=== PATIENT | male | born 1995 | race Caucasian/White ===

== ENCOUNTER 2020-01-18 12:48 | Emergency (ER) | payer BC, OTHER ==
[2020-01-18 12:58] VITALS: BP 118/79; PULSE 49; RESP 18; TEMP 98.1
--- NOTE | 2020-01-18 13:47 | ED ---
Wound/Laceration HPI - General Chief Complaint: Wound/Laceration Stated Complaint: rt arm lac Time Seen by Provider: 01/18/20 13:04 Source: patient, RN notes reviewed, old records reviewed Mode of arrival: ambulatory Limitations: no limitations - History of Present Illness Initial Comments: 24 year old male presents with R arm laceration after tripping last night and patient attempted to sow laceration with needle and thread last night. Patient presents for wound evaluation. He reports TDAP is up to date. Patient denies any redness or pain from laceration. - Related Data Home Medications Medication Instructions Recorded Confirmed Albuterol Sulfate [Proair Hfa] 2 puff INHALATION Q4H PRN 03/03/14 03/04/14 Previous Rx's Medication Instructions Recorded Acamprosate Calcium [Campral] 666 mg PO PC-TID #90 tablet. 03/10/14 Budesonide-Formot 160-4.5 Mcg 2 puff INHALATION RT-BID 30 Days 03/10/14 [Symbicort 160-4.5 Mcg Inhaler] puff Cefuroxime [Ceftin] 500 mg PO BID #60 tab 03/10/14 DULoxetine HCL [Cymbalta] 1 tab PO DAILY #30 capsule. 03/10/14 Loratadine [Claritin] 10 mg PO DAILY #30 tab 03/10/14 cloNIDine HCL [Catapres] 0.1 mg PO BID #60 tab 03/10/14 lamoTRIgine [LaMICtal] 25 mg PO DAILY #30 tab 03/10/14 Allergies Allergy/AdvReac Type Severity Reaction Status Date / Time shrimp Allergy Unknown Uncoded 01/18/20 12:57 Childhood Review of Systems ROS Statement: Those systems with pertinent positive or pertinent negative responses have been documented in the HPI. ROS Other: All systems not noted in ROS Statement are negative. Past Medical History Past Medical History: Asthma History of Any Multi-Drug Resistant Organisms: None Reported Past Surgical History: No Surgical Hx Reported Past Psychological History: Depression, PTSD Smoking Status: Current every day smoker Past Alcohol Use History: Occasional Past Drug Use History: Marijuana General Exam - General Exam Comments Initial Comments: 24 year old male, no distress. Limitations: no limitations General appearance: alert, in no apparent distress Head exam: Present: atraumatic, normocephalic, normal inspection Eye exam: Present: normal appearance, PERRL, EOMI. Absent: scleral icterus, conjunctival injection, periorbital swelling ENT exam: Present: normal exam, mucous membranes moist Neck exam: Present: normal inspection. Absent: tenderness, meningismus, lymphadenopathy Respiratory exam: Present: normal lung sounds bilaterally. Absent: respiratory distress, wheezes, rales, rhonchi, stridor Cardiovascular Exam: Present: regular rate, normal rhythm, normal heart sounds. Absent: systolic murmur, diastolic murmur, rubs, gallop, clicks GI/Abdominal exam: Present: soft, normal bowel sounds. Absent: distended, tenderness, guarding, rebound, rigid Extremities exam: Present: normal inspection, full ROM, normal capillary refill, other (4cm laceration over R forearm, evidence of one suture placed. ). Absent: tenderness, pedal edema, joint swelling, calf tenderness Neurological exam: Present: alert, oriented X3, CN II-XII intact Psychiatric exam: Present: normal affect, normal mood Skin exam: Present: warm, dry, intact, normal color. Absent: rash Course Vital Signs 01/18/20 12:54 Temperature 98.1 F Pulse Rate 49 L Respiratory 18 Rate Blood Pressure 118/79 O2 Sat by Pulse 98 Oximetry Medical Decision Making - Medical Decision Making 24 year old male presents for wound care. Patient caused laceration by falling yesterday, and attempted to sow it at home. I removed poorly placed stitch and due to delayed wound closure, wound was cleaned and closed with steristrips. Discussed return parameters. Given a note for work. Disposition Clinical Impression: Arm laceration Disposition: HOME SELF-CARE Instructions (If sedation given, give patient instructions): Steristrips (ED) Additional Instructions: Keep the wound covered. Allow the Steri-Strips to come off within the next week. Return to the emergency department if any alarming signs or symptoms occur. Is patient prescribed a controlled substance at d/c from ED?: No Referrals: Tino Pham MD [Primary Care Provider] - 1-2 days Time of Disposition: 13:47
== END 2020-01-18 14:33 | disposition home or self-care (01) ==
LOC: EC 12:48
DX: S41.111A Laceration without foreign body of right upper arm, initial encounter (principal); J45.909 Unspecified asthma, uncomplicated; F17.200 Nicotine dependence, unspecified, uncomplicated; Z91.013 Allergy to seafood; W27.3XXA Contact with needle (sewing), initial encounter
CPT/HCPCS: 99283